=== PATIENT | female | born 2000 | race Caucasian/White ===

== ENCOUNTER 2018-04-22 05:41 | Emergency (ER) | payer BC ==
[2018-04-22] MEDS ORDERED: HYDROmorphone 1 MG/ML Syringe IVPUSH ONE ×2 (05:59→07:23)
[2018-04-22] MEDS ORDERED: Metoclopramide 10 MG/2 ML SDV IVPUSH ONE (05:59)
[2018-04-22] MEDS ORDERED: Sodium Chloride 0.9% 1,000 ML IV SCH (06:00)
--- NOTE | 2018-04-22 06:04 | EDM.PDOC ---
<Sherif Whittington - Last Filed: 04/22/18 09:09> ED HPI GENERAL MEDICAL PROBLEM - General Chief Complaint: Abdominal Pain Stated Complaint: RIGHT SIDE PAIN Time Seen by Provider: 04/22/18 05:55 - Related Data Allergies Allergy/AdvReac Type Severity Reaction Status Date / Time No Known Allergies Allergy Verified 04/22/18 05:48 Home Meds: Home Meds Ibuprofen 200 mg PO Q4HR PRN #30 tablet 07/30/14 [Rx] Acetaminophen/HYDROcodone [Nageezi 325-5 MG] 1 - 2 tab PO Q6H PRN #15 tablet 04/22 [Rx] Norethindrone [Aygestin] 1 tab PO DAILY 04/22/18 [History] Ondansetron [Zofran ODT] 1 tab PO Q8H PRN #10 tab.dis 04/22/18 [Rx] Tamsulosin HCl [Flomax] 1 cap PO QAM PRN #5 cap.er.24h 04/22/18 [Rx] Course - Vital Signs Last Recorded V/S: Last Vital Signs Temp 36.8 C 04/22/18 09:20 Pulse 107 H 04/22/18 09:20 Resp 16 04/22/18 09:20 BP 145/88 H 04/22/18 09:20 Pulse Ox 98 04/22/18 09:20 - Orders/Labs/Meds Labs: Laboratory Tests 04/22/18 04/22/18 04/22/18 Range/Units 05:56 05:56 05:56 WBC 11.77 H (3.98-10.04) K/mm3 RBC 4.81 (3.98-5.22) M/mm3 Hgb 12.9 (11.2-15.7) gm/L Hct 38.2 (34.1-44.9) % MCV 79.4 (79.4-94.8) fl MCH 26.8 (25.6-32.2) pg MCHC 33.8 (32.2-35.5) g/dl RDW Std Deviation 36.3 L (36.4-46.3) fL Plt Count 328 (182-369) K/mm3 MPV 9.6 (9.4-12.3) fl Neutrophils % (Manual) 71 H (40-60) % Band Neutrophils % 2 (0-10) % Lymphocytes % (Manual) 17 L (20-40) % Atypical Lymphs % 0 % Monocytes % (Manual) 9 (2-10) % Eosinophils % (Manual) 1 (0.7-5.8) % Basophils % (Manual) 0 L (0.1-1.2) Platelet Estimate Adequate RBC Morph Comment Normal Sodium 141 (136-145) mEq/L Potassium 3.4 L (3.5-5.1) mEq/L Chloride 105 (98-107) mEq/L Carbon Dioxide 22 (21-32) mEq/L Anion Gap 17.4 H (5-15) BUN 11 (7-18) mg/dL Creatinine 0.9 (0.55-1.02) mg/dL Est Cr Clr Drug Dosing 93.34 mL/min Estimated GFR (MDRD) > 60 (>60) mL/min BUN/Creatinine Ratio 12.2 L (14-18) Glucose 121 H (74-106) mg/dL Calcium 8.8 (8.5-10.1) mg/dL Total Bilirubin 0.2 (0.2-1.0) mg/dL AST 15 (15-37) U/L ALT 24 (14-59) U/L Alkaline Phosphatase 71 (46-116) U/L C-Reactive Protein 2.5 H* (<1.0) mg/dL Total Protein 7.4 (6.4-8.2) g/dl Albumin 3.8 (3.4-5.0) g/dl Globulin 3.6 gm/dL Albumin/Globulin Ratio 1.1 (1-2) Lipase 72 L (73-393) U/L HCG, Qual Negative (NEGATIVE) Urine Color (Yellow) Urine Appearance (Clear) Urine pH (5.0-8.0) Ur Specific [place] (1.005-1.030) Urine Protein (Negative) Urine Glucose (UA) (Negative) Urine Ketones (Negative) Urine Occult Blood (Negative) Urine Nitrite (Negative) Urine Bilirubin (Negative) Urine Urobilinogen (0.2-1.0) Ur Leukocyte Esterase (Negative) Urine RBC (0-5) /hpf Urine WBC (0-5) /hpf Ur Epithelial Cells (0-5) /hpf Urine Bacteria (FEW) /hpf Urine Mucus (FEW) /hpf 08/19/18 Range/Units 06:42 WBC (3.98-10.04) K/mm3 RBC (3.98-5.22) M/mm3 Hgb (11.2-15.7) gm/L Hct (34.1-44.9) % MCV (79.4-94.8) fl MCH (25.6-32.2) pg MCHC (32.2-35.5) g/dl RDW Std Deviation (36.4-46.3) fL Plt Count (182-369) K/mm3 MPV (9.4-12.3) fl Neutrophils % (Manual) (40-60) % Band Neutrophils % (0-10) % Lymphocytes % (Manual) (20-40) % Atypical Lymphs % % Monocytes % (Manual) (2-10) % Eosinophils % (Manual) (0.7-5.8) % Basophils % (Manual) (0.1-1.2) Platelet Estimate RBC Morph Comment Sodium (136-145) mEq/L Potassium (3.5-5.1) mEq/L Chloride (98-107) mEq/L Carbon Dioxide (21-32) mEq/L Anion Gap (5-15) BUN (7-18) mg/dL Creatinine (0.55-1.02) mg/dL Est Cr Clr Drug Dosing mL/min Estimated GFR (MDRD) (>60) mL/min BUN/Creatinine Ratio (14-18) Glucose (74-106) mg/dL Calcium (8.5-10.1) mg/dL Total Bilirubin (0.2-1.0) mg/dL AST (15-37) U/L ALT (14-59) U/L Alkaline Phosphatase (46-116) U/L C-Reactive Protein (<1.0) mg/dL Total Protein (6.4-8.2) g/dl Albumin (3.4-5.0) g/dl Globulin gm/dL Albumin/Globulin Ratio (1-2) Lipase (73-393) U/L HCG, Qual (NEGATIVE) Urine Color Yellow (Yellow) Urine Appearance Clear (Clear) Urine pH 6.0 (5.0-8.0) Ur Specific [place] > or = 1.030 (1.005-1.030) Urine Protein 2+ H (Negative) Urine Glucose (UA) Negative (Negative) Urine Ketones Negative (Negative) Urine Occult Blood 2+ H (Negative) Urine Nitrite Negative (Negative) Urine Bilirubin 1+ H (Negative) Urine Urobilinogen 1.0 (0.2-1.0) Ur Leukocyte Esterase Trace H (Negative) Urine RBC 20-30 H (0-5) /hpf Urine WBC 10-20 H (0-5) /hpf Ur Epithelial Cells 0-5 (0-5) /hpf Urine Bacteria Few (FEW) /hpf Urine Mucus Moderate H (FEW) /hpf Meds: Medications Discontinued Medications Generic Name Dose Route Start Last Admin Trade Name Freq PRN Reason Stop Dose Admin Hydromorphone HCl 1 mg 04/22/18 05:59 04/22/18 06:06 Dilaudid IVPUSH 04/22/18 06:00 1 mg ONETIME ONE Administration Hydromorphone HCl 1 mg 04/22/18 07:23 04/22/18 07:28 Dilaudid IVPUSH 04/22/18 07:24 1 mg ONETIME ONE Administration Sodium Chloride 1,000 mls @ 150 mls/hr 04/22/18 06:00 04/22/18 06:05 Normal Saline IV 150 mls/hr ASDIRECTED MIKAYLA Administration Ketorolac Tromethamine 30 mg 04/22/18 08:06 04/22/18 08:13 Toradol IVPUSH 04/22/18 08:07 30 mg ONETIME STA Administration Metoclopramide HCl 10 mg 04/22/18 05:59 04/22/18 06:05 Reglan IVPUSH 04/22/18 06:00 10 mg ONETIME ONE Administration Tamsulosin HCl 0.4 mg 04/22/18 08:06 04/22/18 08:12 Flomax PO 04/22/18 08:07 0.4 mg ONETIME ONE Administration - Re-Assessments/Exams Free Text/Narrative Re-Assessment/Exam: 04/22/18 09:09 CT of the abdomen and pelvis without contrast is read by [facility] as "Mild right-sided hydroureteronephrosis secondary to a 2 mm stone at the right UVJ." 04/22/18 09:17 Test results discussed with the patient and her family. I will discharge the patient home with prescriptions for Nageezi, Flomax, and Zofran. I would like her to take [id number] ibuprofen. She is to stay adequately hydrated. She is to strain all of her urine. I will refer her to Dr. Olsen, however, I explained that he would not be interested in seeing her unless she did not pass the stone in more than a week, which is highly unlikely. Departure - Departure Time of Disposition: 09:18 Disposition: Home, Self-Care 01 Condition: Good Clinical Impression: Ureterolithiasis - Discharge Information *PRESCRIPTION DRUG MONITORING PROGRAM REVIEWED*: Not Applicable *COPY OF PRESCRIPTION DRUG MONITORING REPORT IN PATIENT PAMELA: Not Applicable Prescriptions: Acetaminophen/HYDROcodone [Nageezi 325-5 MG] 1 - 2 tab PO Q6H PRN #15 tablet PRN Reason: Pain (Severe 7-10) Ondansetron [Zofran ODT] 1 tab PO Q8H PRN #10 tab.dis PRN Reason: Nausea/Vomiting Tamsulosin HCl [Flomax] 1 cap PO QAM PRN #5 cap.er.24h PRN Reason: Pain Instructions: Kidney Stones, Kidney Stones, [id number] Referrals: Alesha Perez PA-C [Primary Care Provider] - Js Olsen MD [Ordering Only Provider] - Forms: ED Department Discharge Additional Instructions: You were seen in the emergency room for right and lower abdominal pain, radiating to your lower right back. Workup in the ER included blood work, a urinalysis, and a CT scan of your abdomen and pelvis. A sample of your urine was also sent for culture. Your workup found that you have a 2 mm stone in your right ureter, just above your bladder. Based on the size and location of the stone, you will ALMOST CERTAINLY pass this stone on your own within a day or two. Take [id number] ibuprofen, 2-3 tablets (400-600mg) every 8 hours, with food, around the clock, until your pain has completely resolved. You may take 1-2 tablets of the opioid pain reliever Nageezi up to every 6 hours, as needed for pain not relieved by ibuprofen. If you take Nageezi, do not drive or operate heavy machinery for 10 hours afterwards. Nageezi may cause constipation , so consider taking a stool softener. Take one tablet of the anti-spasm medicine Flomax every morning, starting tomorrow morning, 04/23/2018, as needed for pain. Dissolve one tablet of the anti-nausea medicine Zofran on your tongue up to every 8 hours, as needed for nausea/vomiting. Stay adequately hydrated. It does not really matter what fluid you drink. Strain all your urine. If you capture the stone, take it to your doctor for analysis. Follow-up with the Urologist Dr. Js Olsen if you are still having pain by 04/30/2018. If any other problems, please do not hesitate to return to the ER. <Javier Jimenez - Last Filed: 04/24/18 07:01> ED HPI GENERAL MEDICAL PROBLEM - General Source of Information: Reports: Patient, Family (mother) History Limitations: Reports: No Limitations - History of Present Illness INITIAL COMMENTS - FREE TEXT/NARRATIVE: 18-year-old female presents to the ED after being awoken from sleep about 0430 hrs. with acute onset of diffuse right and mid lower abdominal pain. She states it does radiate into her right lower back but not up to the right flank. Associated nausea without vomiting. She does not have a constant feeling of need to defecate or void. No history of Kidney stones. No position is comfortable at this point time. She claims the pain is constant with a colicky component. States her bowels been working normally without diarrhea or constipation. She finished her period 2 days ago and it was on time and as expected --lasted 5 days. Previous abdominal surgery includes removal of right ovary and fallopian tube due to a very large ovarian cyst. Onset: Today Onset Date: 04/22/18 Onset Time: 04:30 Duration: Hour(s): Location: Reports: Abdomen (Diffuse lower abdominal pain mostly midline and right lower quadrant.) Quality: Reports: Ache, Sharp, Stabbing, Other Severity: Severe (Strong colicky component to the pain) Improves with: Reports: None ( 9 on a 10) Worsens with: Reports: None Context: Reports: Other (Awoken from sleep with severe abdominal pain). Denies : Activity (No position is comfortable), Exercise, Lifting, Sick Contact, Trauma Associated Symptoms: Reports: Loss of Appetite, Nausea/Vomiting (Nausea without vomiting). Denies: Malaise, Shortness of Breath, Syncope Treatments SAFETY RISK LEAD: Reports: Other (see below) (None.) Right Lower Abdomen Pain Score (Numeric/FACES): 10 Past Medical History - Past Surgical History Female Surgical History: Reports: Salpingo-Oophorectomy (Rt side.) Social & Family History - Living Situation & Occupation Living situation: Reports: Single Occupation: Student ED ROS GENERAL - Review of Systems Review Of Systems: See Below Constitutional: Reports: Decreased Appetite. Denies: Fever, Chills, Malaise HEENT: Reports: No Symptoms Respiratory: Reports: No Symptoms Cardiovascular: Reports: No Symptoms Endocrine: Reports: No Symptoms GI/Abdominal: Reports: Abdominal Pain, Other (See history of present illness obesity.) : Reports: No Symptoms Musculoskeletal: Reports: No Symptoms Skin: Reports: No Symptoms Neurological: Reports: No Symptoms Psychiatric: Reports: No Symptoms Hematologic/Lymphatic: Reports: No Symptoms ED EXAM, GI/ABD - Physical Exam Exam: See Below Exam Limited By: No Limitations General Appearance: Alert, Moderate Distress (In obvious discomfort no position is comfortable writhing on the bed.) Eyes: Bilateral: Normal Appearance (No jaundice.) Respiratory/Chest: No Respiratory Distress, Lungs Clear, Normal Breath Sounds, Chest Non-Tender Cardiovascular: Normal Peripheral Pulses, Regular Rate, Rhythm, No Edema, No Murmur GI/Abdominal Exam: Non-Tender, No Organomegaly, No Abnormal Bruit, No Mass, Tender, Abnormal Bowel Sounds, Other (Bowel sounds are decreased from normal.). No: Guarding (Tender to palpation suprapubically and right lower quadrant without guarding or rebound.), Rigid, Rebound Back Exam: Normal Inspection, Full Range of Motion. No: CVA Tenderness (L), CVA Tenderness (R) Extremities: Normal Inspection, Normal Range of Motion, Non-Tender, No Pedal Edema Neurological: Alert, CN II-XII Intact, Normal Cognition Psychiatric: Anxious, Other Skin Exam: Dry, Cool (Cool to touch. Not diaphoretic) Course - Orders/Labs/Meds Labs: Laboratory Tests 04/22/18 04/22/18 04/22/18 Range/Units 05:56 05:56 05:56 WBC 11.77 H (3.98-10.04) K/mm3 RBC 4.81 (3.98-5.22) M/mm3 Hgb 12.9 (11.2-15.7) gm/L Hct 38.2 (34.1-44.9) % MCV 79.4 (79.4-94.8) fl MCH 26.8 (25.6-32.2) pg MCHC 33.8 (32.2-35.5) g/dl RDW Std Deviation 36.3 L (36.4-46.3) fL Plt Count 328 (182-369) K/mm3 MPV 9.6 (9.4-12.3) fl Neutrophils % (Manual) 71 H (40-60) % Band Neutrophils % 2 (0-10) % Lymphocytes % (Manual) 17 L (20-40) % Atypical Lymphs % 0 % Monocytes % (Manual) 9 (2-10) % Eosinophils % (Manual) 1 (0.7-5.8) % Basophils % (Manual) 0 L (0.1-1.2) Platelet Estimate Adequate RBC Morph Comment Normal Sodium 141 (136-145) mEq/L Potassium 3.4 L (3.5-5.1) mEq/L Chloride 105 (98-107) mEq/L Carbon Dioxide 22 (21-32) mEq/L Anion Gap 17.4 H (5-15) BUN 11 (7-18) mg/dL Creatinine 0.9 (0.55-1.02) mg/dL Est Cr Clr Drug Dosing 93.34 mL/min Estimated GFR (MDRD) > 60 (>60) mL/min BUN/Creatinine Ratio 12.2 L (14-18) Glucose 121 H (74-106) mg/dL Calcium 8.8 (8.5-10.1) mg/dL Total Bilirubin 0.2 (0.2-1.0) mg/dL AST 15 (15-37) U/L ALT 24 (14-59) U/L Alkaline Phosphatase 71 (46-116) U/L C-Reactive Protein 2.5 H* (<1.0) mg/dL Total Protein 7.4 (6.4-8.2) g/dl Albumin 3.8 (3.4-5.0) g/dl Globulin 3.6 gm/dL Albumin/Globulin Ratio 1.1 (1-2) Lipase 72 L (73-393) U/L HCG, Qual Negative (NEGATIVE) Urine Color (Yellow) Urine Appearance (Clear) Urine pH (5.0-8.0) Ur Specific [place] (1.005-1.030) Urine Protein (Negative) Urine Glucose (UA) (Negative) Urine Ketones (Negative) Urine Occult Blood (Negative) Urine Nitrite (Negative) Urine Bilirubin (Negative) Urine Urobilinogen (0.2-1.0) Ur Leukocyte Esterase (Negative) Urine RBC (0-5) /hpf Urine WBC (0-5) /hpf Ur Epithelial Cells (0-5) /hpf Urine Bacteria (FEW) /hpf Urine Mucus (FEW) /hpf 04/22/18 Range/Units 06:42 WBC (3.98-10.04) K/mm3 RBC (3.98-5.22) M/mm3 Hgb (11.2-15.7) gm/L Hct (34.1-44.9) % MCV (79.4-94.8) fl MCH (25.6-32.2) pg MCHC (32.2-35.5) g/dl RDW Std Deviation (36.4-46.3) fL Plt Count (182-369) K/mm3 MPV (9.4-12.3) fl Neutrophils % (Manual) (40-60) % Band Neutrophils % (0-10) % Lymphocytes % (Manual) (20-40) % Atypical Lymphs % % Monocytes % (Manual) (2-10) % Eosinophils % (Manual) (0.7-5.8) % Basophils % (Manual) (0.1-1.2) Platelet Estimate RBC Morph Comment Sodium (136-145) mEq/L Potassium (3.5-5.1) mEq/L Chloride (98-107) mEq/L Carbon Dioxide (21-32) mEq/L Anion Gap (5-15) BUN (7-18) mg/dL Creatinine (0.55-1.02) mg/dL Est Cr Clr Drug Dosing mL/min Estimated GFR (MDRD) (>60) mL/min BUN/Creatinine Ratio (14-18) Glucose (74-106) mg/dL Calcium (8.5-10.1) mg/dL Total Bilirubin (0.2-1.0) mg/dL AST (15-37) U/L ALT (14-59) U/L Alkaline Phosphatase (46-116) U/L C-Reactive Protein (<1.0) mg/dL Total Protein (6.4-8.2) g/dl Albumin (3.4-5.0) g/dl Globulin gm/dL Albumin/Globulin Ratio (1-2) Lipase (73-393) U/L HCG, Qual (NEGATIVE) Urine Color Yellow (Yellow) Urine Appearance Clear (Clear) Urine pH 6.0 (5.0-8.0) Ur Specific [place] > or = 1.030 (1.005-1.030) Urine Protein 2+ H (Negative) Urine Glucose (UA) Negative (Negative) Urine Ketones Negative (Negative) Urine Occult Blood 2+ H (Negative) Urine Nitrite Negative (Negative) Urine Bilirubin 1+ H (Negative) Urine Urobilinogen 1.0 (0.2-1.0) Ur Leukocyte Esterase Trace H (Negative) Urine RBC 20-30 H (0-5) /hpf Urine WBC 10-20 H (0-5) /hpf Ur Epithelial Cells 0-5 (0-5) /hpf Urine Bacteria Few (FEW) /hpf Urine Mucus Moderate H (FEW) /hpf Meds: Medications Discontinued Medications Generic Name Dose Route Start Last Admin Trade Name Reubenq PRN Reason Stop Dose Admin Hydromorphone HCl 1 mg 04/22/18 05:59 04/22/18 06:06 Dilaudid IVPUSH 04/22/18 06:00 1 mg ONETIME ONE Administration Hydromorphone HCl 1 mg 04/22/18 07:23 04/22/18 07:28 Dilaudid IVPUSH 04/22/18 07:24 1 mg ONETIME ONE Administration Sodium Chloride 1,000 mls @ 150 mls/hr 04/22/18 06:00 04/22/18 06:05 Normal Saline IV 150 mls/hr ASDIRECTED MIKAYLA Administration Ketorolac Tromethamine 30 mg 04/22/18 08:06 04/22/18 08:13 Toradol IVPUSH 04/22/18 08:07 30 mg ONETIME STA Administration Metoclopramide HCl 10 mg 04/22/18 05:59 04/22/18 06:05 Reglan IVPUSH 04/22/18 06:00 10 mg ONETIME ONE Administration Tamsulosin HCl 0.4 mg 04/22/18 08:06 04/22/18 08:12 Flomax PO 04/22/18 08:07 0.4 mg ONETIME ONE Administration - Radiology Interpretation Free Text/Narrative:: 18-year-old female arrives in the ED with acute onset of diffuse right lower quadrant and suprapubic abdominal pain. Pain does radiate mildly into her right back but not up into her right flank. Awoke from sleep with this severe pain about 0430 hrs. this morning. She has had previous right oophorectomy and fallopian tube excision due to involvement in a large ovarian cyst. Examination reveals bowel sounds to be present but decreased from the norm. She has tenderness suprapubically and right lower quadrant without rebound or guarding. Abdominal girth limits ability to palpate solid organs. No cost to pull ankle tenderness evident. Possibility of a renal stone exist although she does not have all the signs and symptoms. Plan IV normal saline at 150 mils per hour. Will be given Dilaudid 1 mg IV and Reglan 10 mg IV for pain and nausea relief. Routine labs to be obtained. Urinalysis when one becomes available. KUB will be ordered. - Re-Assessments/Exams Free Text/Narrative Re-Assessment/Exam: 04/22/18 06:27 KUB reveals increased stool in the right hemicolon and a few dilated loops of small bowel in the left mid abdomen. No bowel obstruction is evident. Will await labs and urinalysis before proceeding with CT of the abdomen. Pain is improved still rates it is 3 out of 10. Still appears to be mildly uncomfortable with no position really comfortable. Patient advise we will wait for labs and urinalysis before proceeding with CT scan of the abdomen i.e. whether she needs contrast orally or not. 04/22/18 06:56 Labs are partially back. White count is mildly elevated at 11.77. Differential is pending. Hemoglobin is 12.9 with hematocrit of 38.2. MCV is low at 79.4 suggesting some degree of iron deficiency. 320,000. Sodium is 141 with potassium of 3.4. Chloride is 105 with a bicarbonate of 22. Anion gap is elevated at 17.4. BUN is 11 with a creatinine of 0.9. Glucose is 121. Calcium is normal at 8.8. Liver function is normal. C-reactive protein is mildly elevated at 2.5. Lipase is normal at 72. Beta-hCG serum is negative. 04/22/18 07:24 . Urinalysis is revealing 2+ hematuria. The micro-shows 20-30 RBCs per power field but also 10-20 WBCs per high-power field. Will therefore proceed with CT of the abdomen and pelvis without contrast per renal protocol. Urine culture ordered. Care transferred to Dr. Whittington as it is change of shift. Patient reports to the nurse that her pain is coming back. Will repeat Dilaudid 1 mg IV. The differential on the white blood cell count is 71% neutrophils and 2% band cells. 04/22/18 07:40 patient advised of the findings of the urinalysis and therefore we will proceed with CT of the abdomen without any contrast per renal protocol.
[2018-04-22] MEDS ORDERED: Tamsulosin 0.4 MG Cap.ER PO ONE (08:06)
[2018-04-22] MEDS ORDERED: Ketorolac 30 MG/ML SDV IVPUSH STA (08:06)
[2018-04-22 09:21] VITALS: BP 145/88
--- NOTE | 2018-04-25 14:20 | CR ---
Abdomen: Supine view of the abdomen was obtained. Comparison: No prior study. Bowel gas pattern is normal. No abnormal calcifications or soft tissue abnormality is seen. Bony structures are unremarkable. Impression: 1. Nothing acute is seen on supine abdominal x-ray. Diagnostic code #1
--- NOTE | 2018-04-25 14:20 | CT ---
CT abdomen and pelvis Technique: Multiple axial sections were obtained from above the kidneys inferiorly through the pubic symphysis. Intravenous contrast was not utilized. No oral contrast was utilized. Study has been performed as a ureteral stone protocol. Comparison: No prior CT exam. Findings: One or two small nonobstructing calculi seen within the lower right kidney. These measure less than 2 mm in size. Right ureter is mildly prominent. Probable small 2 mm stone within the distal right ureter at the UVJ. No other abnormal calcifications are seen. Visualized posterior lung bases show nothing acute. Noncontrast appearance of the liver appears within normal limits. Spleen appears within normal limits. Gallbladder contains no calcified gallstones. Pancreas is within normal limits. Aorta shows no aneurysmal dilatation. No retroperitoneal adenopathy is seen. Appendix is seen which appears normal in size. No pelvic mass or adenopathy is seen. No free fluid or inflammatory change is seen. Bone window settings were reviewed which appear within normal limits for the patient's age. Impression: 1. One or two small nonobstructing calculi within the right kidney. 2. Mildly prominent right ureter which is felt to be caused by a 2 mm distal right ureteral stone close to the UVJ. 3. No additional abnormality is appreciated on noncontrast CT study of the abdomen and pelvis performed as a ureteral stone protocol. Diagnostic code #3 I agree with preliminary report from [facility], finalized at 04/22/18, 10:00 AM Central Time
== END 2018-04-22 09:33 | disposition home or self-care (01) ==
LOC: JD.ED 05:41
DX: N13.2 Hydronephrosis with renal and ureteral calculous obstruction (principal); Z79.899 Other long term (current) drug therapy
CPT/HCPCS: 36415; 74018; 74176; 80053; 81001; 83690; 84703; 85007; 85027; 86140; 87086; 96361; 96374; 96375; 96376; 99285; A9270; J1170; J1885; J2765; J7040